=== PATIENT | male | born 1965 | race Two or more races ===

== ENCOUNTER 2016-06-15 07:12 | Emergency (ER) | payer MEDICARE, MEDICAID ==
[2016-06-15] MEDS ORDERED: LORAZEPAM 2 MG/ML 1ML SDV ONE (07:37)
[2016-06-15 07:43] LABS: ABSOLUTE NEUTROPHIL COUNT 9.7 K/mm3 (1.8-7.7); BASO % 0.2 % (0.2-1.0); EOS # 0.1 (0.0-0.5); EOS % 0.9 % (0.9-2.9); HEMATOCRIT 36.5 % (32.0-52.0); HEMOGLOBIN 13.1 gm/l (14.0-18.0); IMM NEUT% 0.3 % (0-1); LYMPH # 0.5 (1.0-4.8); LYMPH % 4.5 % (15-45); MEAN CELL VOLUME 86.9 fl (80.0-94.0); MEAN CORPUSCULAR HEMOGLOBIN 31.2 pg (27.0-31.0); MEAN CORPUSCULAR HGB CONC 35.9 g/dl (33.0-37.0); MEAN PLATELET VOLUME 9.7 fl (7.4-10.4); MONO # 1.2 (0.0-0.8); MONO % 10.2 % (4-12); NEUT % 83.9 % (43-75); PLATELET COUNT 151 K/mm3 (130-400); RED CELL DISTRIBUTION WIDTH 11.6 % (11.5-14.5)
[2016-06-15] MEDS ORDERED: LACTATED RINGERS 1,000 ML ONE (08:00)
[2016-06-15 08:03] LABS: ALB/GLOB RATIO 1.4 (>1.0); MAGNESIUM 1.8 mg/dL (1.9-2.7)
[2016-06-15 09:12] LABS: SPECIFIC GRAVITY 1.015 (1.001-1.030); URINE BILIRUBIN NEGATIVE (NEGATIVE); URINE BLOOD NEGATIVE (NEGATIVE); URINE GLUCOSE (UA) NEGATIVE (NEGATIVE); URINE LEUKOCYTE ESTERASE NEGATIVE (NEGATIVE); URINE NITRITE NEGATIVE (NEGATIVE); URINE PROTEIN NEGATIVE (NEGATIVE); URINE UROBILINOGEN NORMAL (0-1 mg/dl)
[2016-06-15 09:14] LABS: URINE APPEARANCE CLEAR; URINE COLOR YELLOW
--- NOTE | 2016-06-15 09:34 | CT ---
Exam: CT head without contrast COMPARISON: 08/12/2008 INDICATION: Seizure. History of neurofibromatosis. Findings: There is no acute intracranial hemorrhage. There is no abnormal intra or extra-axial fluid collection. There is no edema, mass effect or midline shift. Ventricles are normal in size. There is a minimal amount of fluid within the right mastoid sinuses, present previously. Remainder of the visualized paranasal sinuses and mastoid air cells are well aerated. Confluent soft tissue masses are again appreciated, compatible with history of neurofibromatosis. IMPRESSION: No acute intracranial abnormality. Report was uploaded to the EMR at 0930 hours 06/15/2016.
== END 2016-06-15 10:18 | disposition home or self-care (01) ==
LOC: ED 07:12
DX: G40.909 Epilepsy, unspecified, not intractable, without status epilepticus (principal); Z79.899 Other long term (current) drug therapy
CPT/HCPCS: 85025; 80053; 83735; 81003; 70450; 99284; 96374; 99283; J2060; J7120

== ENCOUNTER 2016-09-20 17:56 | Emergency (ER) | payer MEDICARE, MEDICAID ==
[2016-09-20] MEDS ORDERED: IOPAMIDOL 300 (61%) 100 ML VIAL IV ONE (17:57)
[2016-09-20] MEDS ORDERED: LACTATED RINGERS 1,000 ML ONE (18:32)
[2016-09-20 18:37] LABS: ABSOLUTE NEUTROPHIL COUNT 7.1 K/mm3 (1.8-7.7); BASO % 0.4 % (0.2-1.0); EOS # 0.2 (0.0-0.5); EOS % 2.5 % (0.9-2.9); HEMOGLOBIN 13.1 gm/l (14.0-18.0); IMM NEUT% 0.3 % (0-1); LYMPH # 0.9 (1.0-4.8); LYMPH % 9.3 % (15-45); MEAN CELL VOLUME 88.1 fl (80.0-94.0); MEAN CORPUSCULAR HEMOGLOBIN 31.2 pg (27.0-31.0); MEAN CORPUSCULAR HGB CONC 35.4 g/dl (33.0-37.0); MEAN PLATELET VOLUME 10.2 fl (7.4-10.4); MONO # 0.8 (0.0-0.8); MONO % 9.1 % (4-12); NEUT % 78.4 % (43-75); PLATELET COUNT 151 K/mm3 (130-400); RED CELL DISTRIBUTION WIDTH 11.9 % (11.5-14.5); URINE BILIRUBIN NEGATIVE (NEGATIVE); URINE BLOOD NEGATIVE (NEGATIVE); URINE GLUCOSE (UA) NEGATIVE (NEGATIVE); URINE LEUKOCYTE ESTERASE NEGATIVE (NEGATIVE); URINE NITRITE NEGATIVE (NEGATIVE); URINE PROTEIN NEGATIVE (NEGATIVE); URINE UROBILINOGEN NORMAL (0-1 mg/dl)
[2016-09-20 18:39] LABS: URINE APPEARANCE CLEAR; URINE COLOR YELLOW
[2016-09-20 18:50] LABS: ALB/GLOB RATIO 1.4 (>1.0); ALBUMIN 4.1 gm/dL (3.5-5.7); CALCIUM 9.1 mg/dL (8.6-10.3)
[2016-09-20 19:41] LABS: PHENYTOIN (DILANTIN) 11.6 ug/ml (10-20)
--- NOTE | 2016-09-20 21:13 | CT ---
Name: LINSEY MASTERS Exam: CT abdomen pelvis with contrast Comparison: 02/26/2016 History: Flank pain and back pain Procedure: Helical CT using multidetector technique was applied to the abdomen and pelvis during intravenous administration of 100 cc Isovue-300. No oral contrast was given per ordering physician. An automated dose reduction technique was used to minimize patient radiation dose. Findings: CT abdomen (contrast enhanced): There is a small amount of basilar scarring. Heart is not enlarged. There is no pericardial effusion. Liver is normal size and contains several approximately 13 mm and less hypodensities which are unchanged from the prior CT. Gallbladder is not distended. There is no suspicious biliary dilation. Pancreas, spleen, adrenal glands, kidneys, aorta, IVC, portal vein, stomach and small bowel are within normal limits. There is mild to moderate stool within the colon. There are innumerable 1 cm and less soft tissue nodular densities scattered throughout colon compatible with colonic neurofibromas. There is no free air, free fluid or suspicious adenopathy. Advanced degenerative disc disease is present at L1-2. Many small neurofibromas are scattered on the trunk. There is a small amount of posterior body wall edema. There is no suspicious fluid collection or air collection. CT pelvis (contrast enhanced): The bladder is thick-walled but under distended. Prostate and seminal vesicles are within normal limits. There is a 15 cm long segment of thickened irregular proximal to mid sigmoid colon. Diverticuli are noted in this region. At the posterior margin of this abnormal bowel, there is a 15 mm intramural abscess. Findings are most consistent with diverticulitis. Also, findings are quite similar to CT dated 02/26/2016. If there is been no recent colonoscopy, once the patient's symptoms have resolved, direct visualization should be considered to exclude an underlying mass. Again, there are many 1 cm less colonic neurofibromas/polyps. There is no free air, free fluid or bowel obstruction. Distal ureters are normal caliber. Small bowel is unremarkable. The appendix is not identified. There is no suspicious adenopathy. Multiple cutaneous and subcutaneous 3.3 cm less neurofibromas are identified. Impression: 1. Findings most consistent with a long segment diverticulitis involving the proximal and mid sigmoid colon. There is a 1.5 cm intramural abscess. There is no current evidence for perforation or obstruction. Findings are similar to CT dated 02/26/2016. Please see above comments. 2. Innumerable 1 cm less soft tissue nodules scattered throughout colon. Neurofibromatosis or polyposis is favored. Again, consideration be given to follow-up direct visualization. 3. Thick-walled bladder. This finding may be due to underdistention however inflammation from adjacent diverticulitis is a consideration as well. 4. Innumerable cutaneous and subcutaneous 3.3 cm and less neurofibromas 5. Advanced degenerative disc disease L1-2 Note: The above report was uploaded to [facility]'s electronic medical records system at 2109 hours.
== END 2016-09-20 21:39 | disposition home or self-care (01) ==
LOC: ED 17:56
DX: R41.82 Altered mental status, unspecified (principal); M54.5 Low back pain; Q85.01 Neurofibromatosis, type 1; G40.909 Epilepsy, unspecified, not intractable, without status epilepticus; I10 Essential (primary) hypertension; Z79.899 Other long term (current) drug therapy